=== PATIENT | female | born 1980 | race African-American/Black ===

== ENCOUNTER 2024-08-21 09:53 | Inpatient (IN) | payer BC, OTHER ==
[2024-08-20 23:30] VITALS: BP 182/99; PULSE 91; RESP 20; TEMP 98.6; O2SAT 99
[~2024-08-21] VITALS: Ht 177.8 cm; Wt 135.9 kg
[2024-08-21 10:14] VITALS: PULSE 98; RESP 16; O2SAT 98
--- NOTE | 2024-08-21 10:23 | ED.PDOC ---
History of Present Illness HPI Comments 44-year-old female with PMHx HTN, DM, HLD presents with a chief complaint of muscle pain and hypertension. Patient initially came into the ER to have her left foot evaluated for pain that has been present for 1 year, but worsening over the past 2 days. Patient was found to be hypertensive at 235/144. Patient mentions that she just moved to the area and has not established a PMD. No other symptoms or modifying factors present at this time. 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 Family History Family History: Reviewed,noncontributory to illness Social History Smoker: Non-Smoker Alcohol: Denies ETOH Use Drugs: Denies Drug Use Lives In: Home Constitutional: denies: chills, diaphoresis, fatigue, fever, malaise, sweats, weakness, others EENTM: denies: blurred vision, double vision, ear bleeding, ear discharge, ear drainage, ear pain, ear ringing, eye pain, eye redness, hearing loss, mouth pain, mouth swelling, nasal discharge, nose bleeding, nose congestion, nose pain, photophobia, tearing, throat pain, throat swelling, voice changes, others Respiratory: denies: cough, hemoptysis, orthopnea, SOB at rest, shortness of breath, SOB with excertion, stridor, wheezing, others Cardiovascular: reports: others (HYPERTENSION); denies: chest pain, dizzy spells, diaphoresis, Dyspnea on exertion, edema, irregular heart beat, left arm pain, lightheadedness, palpitations, PND, syncope Gastrointestinal: denies: abdomen distended, abdominal pain, blood streaked bowels, constipated, diarrhea, dysphagia, difficulty swallowing, hematemesis, melena, nausea, poor appetite, poor fluid intake, rectal bleeding, rectal pain, vomiting, others Genitourinary: denies: abnormal vagina bleeding, burning, dyspareunia, dysuria, flank pain, frequency, hematuria, incontinence, pain, , vagina discharge, urgency, others Neurological: denies: dizziness, fainting, headache, left sided numbness, left sided weakness, numbness, paresthesia, pre-existing deficit, right sided numbness, right sided weakness, seizure, speech problems, tingling, tremors, weakness, others Musculoskeletal: reports: muscle pain; denies: back pain, gout, joint pain, joint swelling, muscle stiffness, neck pain, others Integumetry: denies: bruises, change in color, change in hair/nails, dryness, laceration, lesions, lumps, rash, wounds, others Allergic/Immunocompromised: denies: Difficulty Healing, Frequent Infections, Hives, Itching, others Hematologic/Lymphatic: denies: anemia, blood clots, easy bleeding, easy bruising, swollen glands, others Endocrine: denies: excessive hunger, excessive sweating, excessive thirst, excessive urination, flushing, intolerance to cold, intolerance to heat, unexplained weight gain, unexplained weight loss, others Psychiatric: denies: anxiety, bipolar disorder, depression, hopeless, panic disorder, schizophrenia, sleepless, suicidal, others All Other Systems: Reviewed and Negative Physical Exam General Appearance: No Apparent Distress, Obese HEENT: Normal ENT Inspection, Pharynx Normal, TMs Normal Neck: Full Range of Motion, Non-Tender, Normal, Normal Inspection Respiratory: Chest Non-Tender, Lungs Clear, No Accessory Muscle Use, No Respiratory Distress, Normal Breath Sounds Cardiovascular: No Edema, No JVD, No Murmur, No Gallop, Normal Peripheral Pulses, Regular Rate/Rhythm Breast Exam: Deferred Gastrointestinal: No Organomegaly, Non Tender, No Pulsatile Mass, Normal Bowel Sounds, Soft Genitalia: Deferred Pelvic: Deferred Rectal: Deferred Extremities: No calf tenderness, Normal capillary refill, Normal inspection, Normal range of motion, No pedal edema, Tender (LEFT FOOT) Musculoskeletal : Apperance: Normal Neurologic: Alert, 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 Was a procedure done?: No Differential Dx Considerations may include: Hypertensive emergency, viral syndrome, acute cystitis, muscle strain, cellulitis, X-Ray, Labs, Meds, VS Vital Signs Date Time Temp Pulse Resp B/P (MAP) Pulse Ox O2 Delivery O2 Flow Rate FiO2 08/21/24 11:20 94 16 98 Room Air* 0 21 08/21/24 11:20 97.1 94 16 114/65 (81) 98 97.1 08/21/24 11:15 92 16 106/68 (81) 98 08/21/24 10:56 232/129 08/21/24 10:38 98.9 08/21/24 10:14 98.1 98 16 233/142 (172) 98 98.1 08/21/24 10:14 98 16 98 Room Air* 0 21 08/21/24 10:12 200/138 (158) 201/121 (147) 08/21/24 10:11 97.1 109 16 210/120 (150) 96 97.1 08/21/24 10:05 97.1 109 16 210/120 (150) 96 Lab Test 08/21/24 11:45 08/21/24 10:54 Range/Units Troponin I High Sensitivity 17 17 </=34 ng/L White Blood Count 5.5 4.4-10.8 10^3/uL Red Blood Count 5.47 H 4.0-5.20 10^6/uL Hemoglobin 14.6 12.2-16.2 g/dL Hematocrit 45.3 36.0-46.0 % Mean Corpuscular Volume 82.8 80.0-100.0 fL Mean Corpuscular Hemoglobin 26.7 L 28.0-32.0 pg Mean Corpuscular Hemoglobin Concent 32.3 32.0-36.0 g/dL Red Cell Distribution Width 15.2 H 11.8-14.3 % Platelet Count 289 140-450 10^3/uL Mean Platelet Volume 9.6 6.9-10.8 fL Neutrophils (%) (Auto) 55.6 37.0-80.0 % Lymphocytes (%) (Auto) 34.8 10.0-50.0 % Monocytes (%) (Auto) 7.2 0.0-12.0 % Eosinophils (%) (Auto) 1.3 0.0-7.0 % Basophils (%) (Auto) 1.1 0.0-2.0 % Neutrophils # (Auto) 3.1 1.6-8.6 10 ^3/uL Lymphocytes # (Auto) 1.9 0.4-5.4 10 ^3/uL Monocytes # (Auto) 0.4 0-1.3 10 ^3/uL Eosinophils # (Auto) 0.1 0-0.8 10 ^3/uL Basophils # (Auto) 0.1 0-0.2 10 ^3/uL Nucleated Red Blood Cells 0.3 % Sodium Level 137 136-145 mmol/L Potassium Level 4.2 3.5-5.1 mmol/L Chloride Level 102 98-107 mmol/L Carbon Dioxide Level 26 20-31 mmol/L Anion Gap 9 5-15 Blood Urea Nitrogen 8 L 9-23 mg/dL Creatinine 0.94 0.550-1.02 mg/dL Glomerular Filtration Rate Calc 76 >90 mL/min BUN/Creatinine Ratio 8.5 L 10.0-20.0 Serum Glucose 204 H 74-106 mg/dL Calcium Level 9.9 8.7-10.4 mg/dL Current Medications Medications (Trade) Dose Ordered Sig/Curt Route Start Time Stop Time Status Last Admin Acetaminophen (Tylenol Tablet) 650 mg ONCE ONCE PO 08/21/24 10:30 08/21/24 10:31 DC 08/21/24 10:38 Hydralazine HCl (Apresoline Injection) 20 mg ONCE ONCE IV 08/21/24 10:30 08/21/24 10:31 DC 08/21/24 10:56 Time of 1ST Reevaluation: 10:45 Reevaluation 1ST: Unchanged Patient Education/Counseling: Diagnosis, Treatment, Prognosis Family Education/Counseling: Diagnosis, Treatment, Prognosis Departure 1 Departure Time of Disposition: 13:37 (Patient presented with hypertension and symptoms concerning for hypertensive emergency. Patient is receiving iv blood pressure medications requiring intensive monitoring. Data: 1. I ordered and reviewed the result of at least 3 labs including a CBC, BMP, and Urinalysis. 2. I independently interpreted the following tests: CT Brain: Which appears benign. EKG which is Normal Sinus RhythmRisk:This patient has a high risk of morbidity due to further diagnostic testing or treatment and may suffer from an acute cardiac disorder. Workup reveals hypertensive emergency and patient should be admitted for further workup. and possible expert consultation. ) Impression: Primary Impression: Hypertensive emergency Additional Impression: Bilateral foot pain Disposition: ADMITTED INPATIENT Admit to: Med Surg Condition: Serious Critical Care Note Critical Care Time?: Yes Critical care comment: Hypertensive emergency Authorized and Performed by: Martha Monique MD Total critical care time: Approximately 38 minutes Due to a high probability of clinically significant, life threatening deterioration, the patient required my highest level of preparedness to intervene emergently and I personally spent this critical care time directly and personally managing the patient. This critical care time included obtaining a history; examining the patient; pulse oximetry; ordering and review of studies; arranging urgent treatment with development of a management plan; evaluation of patient's response to treatment; frequent reassessment; and, discussions with other providers. This critical care time was performed to assess and manage the high probability of imminent, life-threatening deterioration that could result in multi-organ failure. It was exclusive of separately billable procedures and treating other patients and teaching time. Please see my other sections and the rest of the note for further information on patient assessment and treatment. Stability Stability form required: No Heart Score Heart Score: Heart Score Response (Comments) Value History N/A 0 EKG N/A 0 Age N/A 0 Risk Factors N/A 0 Troponin N/A 0 Total 0 I personally scribed for MARTHA MONIQUE MD ([email or web address]) on 08/21/24 at 10:23. Electronically submitted by Jose Elizabeth ([email or web address]). MARTHA MONIQUE MD Aug 21, 2024 10:23
[2024-08-21] MEDS: ACETAMINOPHEN 325 MG TAB PO ONE (10:38)
[2024-08-21] MEDS: hydrALAZINE HCL 20 MG/ML VL IV ONE (10:56)
--- NOTE | 2024-08-21 11:10 | DVH ---
CLINICAL INDICATION: left foot pain TECHNIQUE: XY L FOOT 3 VIEW XRAY, XY R FOOT 3 VIEW XRAY Comparison: None FINDINGS/IMPRESSION: : There is no evidence of acute fracture or dislocation. Bilateral hallux valgus mild on the right and moderate on the left.
--- NOTE | 2024-08-21 11:11 | DVH ---
CHEST RADIOGRAPH Indication: htn Technique: Single frontal view of the chest was obtained Comparison: None FINDINGS: Lines and Tubes: None Lungs: No focal consolidation. Pleura: No effusion. No pneumothorax. Cardiomediastinal contours: Unremarkable Bones: No acute osseous abnormality. IMPRESSION: No acute cardiopulmonary disease.
[2024-08-21 11:20] VITALS: PULSE 94; RESP 16; O2SAT 98
[2024-08-21 11:31] LABS: Basophils # (auto) 0.1 10 ^3/uL (0-0.2); Basophils % (auto) 1.1 % (0.0-2.0); Eosinophils # (auto) 0.1 10 ^3/uL (0-0.8); Lymphocytes # (auto) 1.9 10 ^3/uL (0.4-5.4); Mean Corpuscular Hgb Conc. 32.3 g/dL (32.0-36.0); Neutrophils # (auto) 3.1 10 ^3/uL (1.6-8.6); White Blood Cell 5.5 10^3/uL (4.4-10.8)
[2024-08-21 11:34] LABS: Eosinophils % (auto) 1.3 % (0.0-7.0); Hematocrit 45.3 % (36.0-46.0); Hemoglobin 14.6 g/dL (12.2-16.2); Lymphocytes % (auto) 34.8 % (10.0-50.0); Mean Corpuscular Hemoglobin 26.7 pg (28.0-32.0); Mean Corpuscular Volume 82.8 fL (80.0-100.0); Monocytes # (auto) 0.4 10 ^3/uL (0-1.3); Monocytes % (auto) 7.2 % (0.0-12.0); Neutrophils % (auto) 55.6 % (37.0-80.0); Nucleated Red Blood Cells % 0.3 %; Platelet Count (auto) 289 10^3/uL (140-450); Red Blood Cells 5.47 10^6/uL (4.0-5.20); Red Cell Distribution Width 15.2 % (11.8-14.3)
[2024-08-21 11:38] LABS: Chloride 102 mmol/L (98-107); Potassium 4.2 mmol/L (3.5-5.1); Sodium 137 mmol/L (136-145)
[2024-08-21 11:39] LABS: Anion Gap 9 (5-15); Calcium 9.9 mg/dL (8.7-10.4); Carbon Dioxide 26 mmol/L (20-31)
[2024-08-21 11:44] LABS: BUN/Creatinine Ratio 8.5 (10.0-20.0)
[2024-08-21 11:48] LABS: Blood Urea Nitrogen 8 mg/dL (9-23); Glucose 204 mg/dL (74-106)
[2024-08-21] MEDS: KETOROLAC TROMETH 30 MG/ML 1ML VIAL IV ONE (13:54)
[2024-08-21] MEDS ORDERED: ONDANSETRON HCL 4 MG/2 ML VIAL IV PRN ×2 (14:00→23:15)
[2024-08-21] MEDS ORDERED: ACETAMINOPHEN 325 MG TAB PO PRN (14:00)
[2024-08-21] MEDS ORDERED: hydrALAZINE HCL 20 MG/ML VL IV PRN (14:00)
[2024-08-21] MEDS ORDERED: DOCUSATE SOD 100 MG CAP PO PRN ×2 (14:00→23:15)
[2024-08-21] MEDS ORDERED: HYDROcodone-ACET 5/325MG TAB PO PRN (14:00)
[2024-08-21] MEDS ORDERED: DEXTROSE (50%) 50ML SYRG IV PRN ×2 (14:00→23:00)
[2024-08-21] MEDS: SODIUM CHLORIDE 0.9% 1,000 ML IV SCH ×2 (14:27→23:15)
[2024-08-21 14:28] LABS: Urine Bacteria None Seen /hpf (None Seen)
[2024-08-21 14:55] LABS: Urine Blood TRACE /uL (Negative); Urine Clarity Clear (Clear); Urine Color Light-Yellow (Yellow); Urine Hyaline Cast FEW /lpf (0 - 2); Urine Protein, UAD 1+ (Negative); Urine Specific Gravity 1.012 (1.001-1.035); Urine Squamous Epithelial Cell FEW /hpf (<5); Urine Urobilinogen Normal (Negative); Urine WBC 1 /HPF (0-5)
--- NOTE | 2024-08-21 15:55 | DVHHP2 ---
History of Present Illness Reason for Visit: Hypertensive urgency History of Present Illness The patient is a 44-year-old female with past medical history of hypertension, DM, and hyperlipidemia who presented to [facility] ED with complaint of muscle pain and high blood pressure. Patient reports she has been exper iencing chronic bilateral foot pain left worse than right for the past 1 year, worsening over the past 2 days that prompted this visit. Patient was seen and evaluated in in the ED hypertensive blood pressure 233/142, heart rate 109, temperature 97.1 F, O2 saturation 98% on room air, WBC 5.5, platelets 289, sodium 137, potassium 4.2, BUN eight, creatinine 0.94, GFR 76, glucose 204, troponin 17. Bilateral lower extremity x-ray showed no evidence of acute fracture or dislocation. Patient was given IV morphine sulfate 2 mg x1, hydralazine 20 mg IV x1, please see medication orders section in the computer. On my assessment, blood pressure trending down to 114/65, heart rate 94, patient denied chest pain, no headache, no dizziness, no loss of consciousness, no mayur sea, no vomiting, no fever, no chills. Patient was admitted for further evaluation and medical management. Past Medical History DM, High Lipids, HTN Past Surgical History Denies all surgeries Family History Reviewed, noncontributory to the management of this case. Past Social History The patient lives at home, denies smoking, alcohol or illicit drugs abuse. Review of Systems Constitutional: No: Fever, Chills, Sweats, Weakness, Malaise, Other Eyes: No: Pain, Vision change, Conjunctivae inflammation, Eyelid inflammation, Other, Redness ENT: No: Ear pain, Ear discharge, Nose pain, Nose discharge, Nose congestion, Mouth pain, Mouth swelling, Throat pain, Throat swelling, Other Respiratory: No: Cough, Dry, Shortness of breath, SOB with excertion, Wheezing, Hemoptysis, Pleuritic Pain, Sputum, Wheezing, Other Cardiovascular: Other (Hypertension); No: Chest Pain, Palpitations, Orthopnea, Paroxysmal Noc. Dyspnea, Edema, Lt Headedness Gastrointestinal: No: Nausea, Vomiting, Abdominal Pain, Diarrhea, Constipation, Melena, Hematochezia, Other Genitourinary: No Dysuria, No Frequency, No Incontinence, No Hematuria, No Retention, No Other Musculoskeletal: other (Muscle pain); No: neck pain, shoulder pain, arm pain, back pain, hand pain, leg pain, foot pain Skin: No: Rash, Lesions, Jaundice, Bruising, Other Neurological: No: Weakness, Numbness, Incoordination, Change in speech, Confusion, Seizures, Other Allergies: Coded Allergies: NO KNOWN ALLERGIES (Unverified , 08/21/24) Medications Current Medications Medications Dose Ordered Sig/Curt Route Start Time Stop Time Status Last Admin Dose Admin Amlodipine Besylate 5 mg DAILY PO 08/22/24 10:00 Metoprolol Tartrate 25 mg BID PO 08/21/24 22:00 Hydralazine HCl 10 mg Q6HP PRN IV 08/21/24 14:00 Atorvastatin Calcium 20 mg HS PO 08/21/24 22:00 Diagnostic Test (Pha) 1 strip ACHS 08/21/24 17:00 Insulin Human Regular HS SC 08/21/24 22:00 Insulin Human Regular AC SC 08/21/24 17:00 Dextrose 50 ml UD PRN IV 08/21/24 14:00 Sodium Chloride 1,000 ml @ 60 mls/hr [id number] IV 08/21/24 14:00 08/21/24 14:27 60 MLS/HR Acetaminophen/ Hydrocodone Bitart 1 tab Q4HP PRN PO 08/21/24 14:00 Ondansetron HCl 4 mg Q4HP PRN IV 08/21/24 14:00 Docusate Sodium 100 mg BIDPRN PRN PO 08/21/24 14:00 Acetaminophen 650 mg Q6HP PRN PO 08/21/24 14:00 Aspirin 81 mg DAILY PO 08/22/24 10:00 Exam Vital Signs Vital Signs Date Time Temp Pulse Resp B/P (MAP) Pulse Ox O2 Delivery O2 Flow Rate FiO2 08/21/24 14:00 99 18 141/120 (127) 100 08/21/24 11:20 Room Air* 0 21 08/21/24 11:20 97.1 97.1 General Appearance: Alert, Oriented X3, Cooperative, No acute distress HEENT: Atraumatic, PERRLA, EOMI, Mucous membr. moist/pink Respiratory: Clear to auscultation, Normal air movement Cardiovascular: Regular rate, Normal S1, Normal S2, No murmurs Abdominal: Normal bowel sounds, Soft, No tenderness, No hepatospenomegaly, No masses Extremities: No clubbing, No cyanosis, No edema, Normal pulses, Other (Bilateral foot tenderness) Skin: No rashes, No breakdown, No significant lesion Neuro: Normal gait, Normal speech, Strength at 5/5 X4 ext, Normal tone, Sensation intact, Cranial nerves 3-12 NL, Reflexes 2+ Psych/Mental Status: Mental status NL, Mood NL Labs/Xrays Labs Test 08/21/24 14:33 08/21/24 10:54 08/21/24 10:36 Range/Units Troponin I High Sensitivity 16 </=34 ng/L White Blood Count 5.5 4.4-10.8 10^3/uL Red Blood Count 5.47 H 4.0-5.20 10^6/uL Hemoglobin 14.6 12.2-16.2 g/dL Hematocrit 45.3 36.0-46.0 % Mean Corpuscular Volume 82.8 80.0-100.0 fL Mean Corpuscular Hemoglobin 26.7 L 28.0-32.0 pg Mean Corpuscular Hemoglobin Concent 32.3 32.0-36.0 g/dL Red Cell Distribution Width 15.2 H 11.8-14.3 % Platelet Count 289 140-450 10^3/uL Mean Platelet Volume 9.6 6.9-10.8 fL Neutrophils (%) (Auto) 55.6 37.0-80.0 % Lymphocytes (%) (Auto) 34.8 10.0-50.0 % Monocytes (%) (Auto) 7.2 0.0-12.0 % Eosinophils (%) (Auto) 1.3 0.0-7.0 % Basophils (%) (Auto) 1.1 0.0-2.0 % Neutrophils # (Auto) 3.1 1.6-8.6 10 ^3/uL Lymphocytes # (Auto) 1.9 0.4-5.4 10 ^3/uL Monocytes # (Auto) 0.4 0-1.3 10 ^3/uL Eosinophils # (Auto) 0.1 0-0.8 10 ^3/uL Basophils # (Auto) 0.1 0-0.2 10 ^3/uL Nucleated Red Blood Cells 0.3 % Sodium Level 137 136-145 mmol/L Potassium Level 4.2 3.5-5.1 mmol/L Chloride Level 102 98-107 mmol/L Carbon Dioxide Level 26 20-31 mmol/L Anion Gap 9 5-15 Blood Urea Nitrogen 8 L 9-23 mg/dL Creatinine 0.94 0.550-1.02 mg/dL Glomerular Filtration Rate Calc 76 >90 mL/min BUN/Creatinine Ratio 8.5 L 10.0-20.0 Serum Glucose 204 H 74-106 mg/dL Calcium Level 9.9 8.7-10.4 mg/dL Urine Color Light-yellow Yellow Urine Clarity Clear Clear Urine pH 7.0 5.0-9.0 Urine Specific Kidder 1.012 1.001-1.035 Urine Protein 1+ H Negative Urine Ketones Negative Negative Urine Blood Trace H Negative /uL Urine Nitrite Negative Negative Urine Bilirubin Negative Negative Urine Urobilinogen Normal Negative mg/dL Urine Leukocyte Esterase Negative Negative /uL Urine RBC 4 0 - 4 /hpf Urine Microscopic WBC 1 0-5 /HPF Urine Squamous Epithelial Cells Few <5 /hpf Urine Bacteria None seen None Seen /hpf Urine Hyaline Casts Few 0 - 2 /lpf Urine Glucose Normal Normal mg/dL PATIENT: NICHOLAS OSORIO ACCT: [id number] UNIT: [id number] : 1980 LOC: ER ROOM / BED: / AGE / SEX: 44 / F ADM STATUS: REG ER SERVICE 1029 ORDERING PHYSICIAN: MARTHA ZARAGOZA MD PROCEDURE(s): CXRP - CHEST PORTABLE REASON: htn ORDER NUMBER(s): [id number], ACCESSION NUMBER(s): [id number] CHEST RADIOGRAPH Indication: htn Technique: Single frontal view of the chest was obtained Comparison: None FINDINGS: Lines and Tubes: None Lungs: No focal consolidation. Pleura: No effusion. No pneumothorax. Cardiomediastinal contours: Unremarkable Bones: No acute osseous abnormality. IMPRESSION: No acute cardiopulmonary disease. ORDERING PHYSICIAN: MARTHA ZARAGOZA MD PROCEDURE(s): LFOOT - L FOOT 3 VIEW XRAY REASON: left foot pain ORDER NUMBER(s): [id number], ACCESSION NUMBER(s): [id number] CLINICAL INDICATION: left foot pain TECHNIQUE: XY L FOOT 3 VIEW XRAY, XY R FOOT 3 VIEW XRAY Comparison: None FINDINGS/IMPRESSION: There is no evidence of acute fracture or dislocation. Bilateral hallux valgus mild on the right and moderate on the left. ORDERING PHYSICIAN: MARTHA ZARAGOZA MD PROCEDURE(s): RFOOT - R FOOT 3 VIEW XRAY REASON: right foot pain ORDER NUMBER(s): [id number], ACCESSION NUMBER(s): [id number] CLINICAL INDICATION: Right foot pain TECHNIQUE: XY L FOOT 3 VIEW XRAY, XY R FOOT 3 VIEW XRAY Comparison: None FINDINGS/IMPRESSION: There is no evidence of acute fracture or dislocation. Bilateral hallux valgus mild on the right and moderate on the left. Assessment/Plan Assessment/Plan Hypertensive emergency Bilateral foot pain Diabetes mellitus with hyperglycemia Plan 1. Admit to telemetry unit 2. Breathing treatment 3. Pain control management 4. Management of fluids and electrolytes 5. Consultation for hospitalist 6. Diagnostic tests bilateral foot x-ray 7. DVT prophylaxis on aspirin 8. Repeat labs CBC, CMP in a.m. 9. Continue with current medical management 10. Treatment plan discussed with patient and RN. Patient verbalized understanding. Plan discussed with: Patient, Other (RN) My Orders Orders - WAYNE KYLE DNP Procedure Category Date Status Time Consistent DIET 08/21/24 Transmitted Carb(Ccho)Diabetes Dinner Amlodipine Tablet PHA 08/22/24 In Process (Norvasc Tablet) 10:00 Metoprolol Tartrate PHA 08/21/24 In Process Tablet (Lopressor Ta 22:00 Hydralazine Injection PHA 08/21/24 In Process (Apresoline Inject 14:00 Atorvastatin (Lipitor) PHA 08/21/24 In Process 22:00 Glucose Blood PHA 08/21/24 In Process (Accu-Chek Comfort 17:00 Insulin R (Human) PHA 08/21/24 In Process (Insulin R) 22:00 Insulin R (Human) PHA 08/21/24 In Process (Insulin R) 17:00 Dextrose 50% Syringe PHA 08/21/24 In Process 14:00 Allergies YOU 08/21/24 In Process 13:57 Code Status CODE 08/21/24 Transmitted 13:57 Sodium Chloride 0.9% PHA 08/21/24 In Process 14:00 Oxygen Per Hour RT 08/21/24 Transmitted 13:57 Hydrocodone-Acet PHA 08/21/24 In Process 5/325mg Tab ([place] 14:00 Ondansetron Hcl PHA 08/21/24 In Process (Zofran) 14:00 Docusate Sodium PHA 08/21/24 In Process Capsule (Colace 14:00 Complete Blood Count LAB 08/22/24 Verified 04:00 Comprehensive LAB 08/22/24 Verified Metabolic Panel 04:00 Condition: Serious YOU 08/21/24 In Process 13:57 Acetaminophen Tablet PHA 08/21/24 In Process (Tylenol Tablet) 14:00 Bedrest With Bathroom YOU 08/21/24 In Process Privileg 13:57 Sequential YOU 08/21/24 In Process Compression Device Aspirin Tablet PHA 08/22/24 In Process 10:00 Problem List: (1) Hypertensive emergency (2) Bilateral foot pain (3) Diabetes mellitus with hyperglycemia Date of Service: Aug 21, 2024 Billing Provider: WAYNE KYLE DNP Common Visit Codes: [id number] INP/OBS CARE (HIGH) WAYNE KYLE DNP Aug 21, 2024 15:55
[2024-08-21] MEDS ORDERED: NITROGLYCERIN 0.4 MG SL TAB SL PRN ×3 (16:00→23:15)
[2024-08-21] MEDS ORDERED: MORPHINE SULFATE INJ 2 MG/ml SYRG IV PRN ×3 (16:00→23:15)
[2024-08-21] MEDS: ACCU-CHEK COMFORT CURVE STRIP VI SCH (17:00)
[2024-08-21] MEDS: InsuLIN REG 1unit/0.01ml Soln (100units/ml) SC SCH ×2 (17:00→22:00)
[2024-08-21 19:40] VITALS: PULSE 99; RESP 20; O2SAT 99
[2024-08-21 21:00] VITALS: BP 182/99; PULSE 91; RESP 20; TEMP 98.6; O2SAT 99
[2024-08-21] MEDS ORDERED: METOPROLOL TARTRATE 25 MG TAB PO SCH (22:00)
[2024-08-21] MEDS ORDERED: ATORVASTATIN 20 MG TAB PO SCH (22:00)
[2024-08-21 22:30] VITALS: BP 182/99; PULSE 91; RESP 20; TEMP 98.6; O2SAT 99
[2024-08-21] MEDS: HYDROcodone-ACET 5/325MG TAB PO PRN (23:21)
[2024-08-21] MEDS: hydrALAZINE HCL 20 MG/ML VL IV PRN (23:22)
[2024-08-22] VITALS (8 sets, daily range): BP systolic 142–180; BP diastolic 64–99; PULSE 89–100; RESP 17–20; TEMP 98.1–98.8; O2SAT 94–99
[2024-08-22] MEDS ORDERED: HYDR25TA4 PO (00:25)
[2024-08-22] MEDS ORDERED: ATOR20TA50 PO (00:25)
[2024-08-22] MEDS: InsuLIN REG 1unit/0.01ml Soln (100units/ml) SC SCH ×2 (06:06→21:36)
[2024-08-22] MEDS: ACCU-CHEK COMFORT CURVE STRIP VI SCH (06:06)
[2024-08-22] MEDS ORDERED: amLODIPine BESYLATE 5 MG TAB PO SCH (10:00)
[2024-08-22] MEDS ORDERED: ASPirin 81 mg TAB PO SCH (10:00)
[2024-08-22] MEDS: ASPirin 81 mg TAB PO SCH (10:30)
[2024-08-22] MEDS: amLODIPine BESYLATE 5 MG TAB PO SCH (10:31)
[2024-08-22] MEDS: METOPROLOL TARTRATE 25 MG TAB PO SCH (10:31)
--- NOTE | 2024-08-22 14:26 | DVHPN2 ---
Subjective 44-year-old female with a history of hypertension, prediabetic, morbid obesity, dyslipidemia came with bilateral feet pain and hypertension She has pain in the medial aspect of the 1st toe of both feet Her blood pressure is high Otherwise she is asymptomatic Changes from previous H/P or p: Changes Eyes: No Pain, No Vision change, No Conjunctivae inflammation, No Eyelid inflammation, No Other, No Redness ENT: No Ear pain, No Ear discharge, No Nose pain, No Nose discharge, No Nose congestion, No Mouth pain, No Mouth swelling, No Throat pain, No Throat swelling, No Other Cardiovascular: No Chest Pain, No Palpitations, No Orthopnea, No Paroxysmal Noc. Dyspnea, No Edema, No Lt Headedness; Other (Hypertension) Respiratory: No Cough, No Dry, No Shortness of breath, No SOB with excertion, No Wheezing, No Hemoptysis, No Pleuritic Pain, No Sputum, No Other Gastrointestinal: No Nausea, No Vomiting, No Abdominal Pain, No Diarrhea, No Constipation, No Melena, No Hematochezia, No Other Genitourinary: No Dysuria, No Frequency, No Incontinence, No Hematuria, No Retention, No Other Musculoskeletal: other (Muscle pain); No neck pain, No shoulder pain, No arm pain, No back pain, No hand pain, No leg pain, No foot pain Skin: No Rash, No Lesions, No Jaundice, No Bruising, No Other Objective Vitals Vital Signs Date Time Temp Pulse Resp B/P (MAP) Pulse Ox O2 Delivery O2 Flow Rate FiO2 08/22/24 10:31 92 170/87 08/22/24 09:35 98.2 18 97 98.2 08/22/24 08:00 Room Air* 0 21 Intake/Output Intake and Output 08/22/24 07:00 Intake Total 320 ml Balance 320 ml Intake Oral 200 ml IV Total 120 ml # Voids 2 General Appearance: Alert, Oriented X3, Cooperative, No acute distress Lungs: Clear to auscultation, Normal air movement Cardiovascular: Regular rate, Normal S1, Normal S2, No murmurs Abdomen: Normal bowel sounds, Soft, No tenderness Extremities: No edema Medications Current Medications Medications Dose Ordered Sig/Curt Route Start Time Stop Time Status Last Admin Dose Admin Amlodipine Besylate 5 mg DAILY PO 08/22/24 10:00 08/22/24 10:31 5 MG Metoprolol Tartrate 25 mg BID PO 08/22/24 10:00 08/22/24 10:31 25 MG Hydralazine HCl 10 mg Q6HP PRN IV 08/21/24 23:00 08/22/24 05:44 10 MG Atorvastatin Calcium 20 mg HS PO 08/22/24 22:00 Diagnostic Test (Pha) 1 strip ACHS 08/22/24 07:00 08/22/24 12:51 1 STRIP Insulin Human Regular HS SC 08/22/24 22:00 Insulin Human Regular AC SC 08/22/24 07:00 Dextrose 50 ml UD PRN IV 08/21/24 23:00 Sodium Chloride 1,000 ml @ 60 mls/hr [id number] IV 08/21/24 23:15 Acetaminophen/ Hydrocodone Bitart 1 tab Q4HP PRN PO 08/21/24 23:15 08/21/24 23:21 1 TAB Ondansetron HCl 4 mg Q4HP PRN IV 08/21/24 23:15 Docusate Sodium 100 mg BIDPRN PRN PO 08/21/24 23:15 Acetaminophen 650 mg Q6HP PRN PO 08/21/24 23:15 Aspirin 81 mg DAILY PO 08/22/24 10:00 08/22/24 10:30 81 MG Morphine Sulfate 2 mg Q30M PRN IV 08/21/24 23:15 Nitroglycerin 0.4 mg Q5MINP PRN SL 08/21/24 23:15 Laboratory Results Laboratory Tests 08/21/24 10:54 Urinalysis Test 08/21/24 10:36 Urine Color Light-yellow (Yellow) Urine Clarity Clear (Clear) Urine pH 7.0 (5.0-9.0) Urine Specific [place] 1.012 (1.001-1.035) Urine Protein 1+ (Negative) H Urine Ketones Negative (Negative) Urine Blood Trace /uL (Negative) H Urine Nitrite Negative (Negative) Urine Bilirubin Negative (Negative) Urine Urobilinogen Normal mg/dL (Negative) Urine Leukocyte Esterase Negative /uL (Negative) Urine RBC 4 /hpf (0 - 4) Urine Microscopic WBC 1 /HPF (0-5) Urine Squamous Epithelial Cells Few /hpf (<5) Urine Bacteria None seen /hpf (None Seen) Urine Hyaline Casts Few /lpf (0 - 2) Urine Glucose Normal mg/dL (Normal) Assessment/Plan Assessment/Plan Uncontrolled hypertension Bilateral feet bunions 1st metatarsal Morbid obesity Prediabetic Mixed hyperlipidemia Plan Restart her home medications Increase lisinopril to 40 mg daily Increase amlodipine to 10 mg daily Continue hydrochlorothiazide 25 mg daily Outpatient referral to Podiatry Monitor the patient in the hospital 1 more day Full code Discussed with the patient and with her brother over the phone Advance directives and care plan was discussed for 15 minute Plan discussed with: Patient, Other Date of Service: Aug 22, 2024 Billing Provider: ERROL HOPSON MD Common Visit Codes: [id number] INP/OBS CARE(HIGH) Secondary Visit Codes: [id number] CARE PLAN 30 MINUTES ERROL HOPSON MD Aug 22, 2024 14:26
[2024-08-22] MEDS: ACETAMINOPHEN 325 MG TAB PO PRN (16:05)
[2024-08-22] MEDS: LISINOPRIL 20 MG TAB PO ONE (16:05)
[2024-08-22] MEDS: amLODIPine BESYLATE 5 MG TAB PO ONE (16:06)
[2024-08-22] MEDS: hydroCHLOROthiazide 25 MG TAB PO ONE (16:06)
[2024-08-22] MEDS: ATORVASTATIN 20 MG TAB PO SCH (21:33)
[2024-08-23 01:00] VITALS: BP 170/84; PULSE 96; RESP 18; TEMP 99; O2SAT 95
[2024-08-23 05:00] VITALS: BP 148/86; PULSE 100; RESP 18; TEMP 98.4; O2SAT 93
[2024-08-23 08:00] VITALS: PULSE 82; RESP 20; O2SAT 94
[2024-08-23 08:02] LABS: Triglycerides 110 mg/dL (< 150)
[2024-08-23 08:06] LABS: Cholesterol 215 mg/dL (< 200); HDL Cholesterol 40 mg/dL (40-59); LDL Cholesterol 169 mg/dL (< 100)
[2024-08-23 09:00] VITALS: BP 146/86; PULSE 100; RESP 20; TEMP 98; O2SAT 97
[2024-08-23] MEDS ORDERED: AMLO1TAB23 PO (09:43)
[2024-08-23] MEDS ORDERED: HYDR25TA4 PO (09:43)
[2024-08-23] MEDS ORDERED: LISI40TA16 PO (09:43)
--- NOTE | 2024-08-23 09:46 | DVHDS2 ---
Discharge Summary Date of Admission Aug 21, 2024 at 15:54 Date of Discharge: Aug 23, 2024 Labs/Diagnostic Data: Laboratory Results Test 08/23/24 06:25 08/22/24 17:24 08/21/24 14:33 08/21/24 10:54 Hemoglobin A1c 7.2 % A1C (<5.7) Triglycerides Level 110 mg/dL (< 150) Cholesterol Level 215 mg/dL (< 200) LDL Cholesterol 169 mg/dL (< 100) HDL Cholesterol 40 mg/dL (40-59) POC Glucose 141 mg/dl (70-106) Troponin I High Sensitivity 16 ng/L (</=34) White Blood Count 5.5 10^3/uL (4.4-10.8) Red Blood Count 5.47 10^6/uL (4.0-5.20) Hemoglobin 14.6 g/dL (12.2-16.2) Hematocrit 45.3 % (36.0-46.0) Mean Corpuscular Volume 82.8 fL (80.0-100.0) Mean Corpuscular Hemoglobin 26.7 pg (28.0-32.0) Mean Corpuscular Hemoglobin Concent 32.3 g/dL (32.0-36.0) Red Cell Distribution Width 15.2 % (11.8-14.3) Platelet Count 289 10^3/uL (140-450) Mean Platelet Volume 9.6 fL (6.9-10.8) Neutrophils (%) (Auto) 55.6 % (37.0-80.0) Lymphocytes (%) (Auto) 34.8 % (10.0-50.0) Monocytes (%) (Auto) 7.2 % (0.0-12.0) Eosinophils (%) (Auto) 1.3 % (0.0-7.0) Basophils (%) (Auto) 1.1 % (0.0-2.0) Neutrophils # (Auto) 3.1 10 ^3/uL (1.6-8.6) Lymphocytes # (Auto) 1.9 10 ^3/uL (0.4-5.4) Monocytes # (Auto) 0.4 10 ^3/uL (0-1.3) Eosinophils # (Auto) 0.1 10 ^3/uL (0-0.8) Basophils # (Auto) 0.1 10 ^3/uL (0-0.2) Nucleated Red Blood Cells 0.3 % Sodium Level 137 mmol/L (136-145) Potassium Level 4.2 mmol/L (3.5-5.1) Chloride Level 102 mmol/L (98-107) Carbon Dioxide Level 26 mmol/L (20-31) Anion Gap 9 (5-15) Blood Urea Nitrogen 8 mg/dL (9-23) Creatinine 0.94 mg/dL (0.550-1.02) Glomerular Filtration Rate Calc 76 mL/min (>90) BUN/Creatinine Ratio 8.5 (10.0-20.0) Serum Glucose 204 mg/dL (74-106) Calcium Level 9.9 mg/dL (8.7-10.4) Test 08/21/24 10:36 Urine Color Light-yellow (Yellow) Urine Clarity Clear (Clear) Urine pH 7.0 (5.0-9.0) Urine Specific [place] 1.012 (1.001-1.035) Urine Protein 1+ (Negative) Urine Ketones Negative (Negative) Urine Blood Trace /uL (Negative) Urine Nitrite Negative (Negative) Urine Bilirubin Negative (Negative) Urine Urobilinogen Normal mg/dL (Negative) Urine Leukocyte Esterase Negative /uL (Negative) Urine RBC 4 /hpf (0 - 4) Urine Microscopic WBC 1 /HPF (0-5) Urine Squamous Epithelial Cells Few /hpf (<5) Urine Bacteria None seen /hpf (None Seen) Urine Hyaline Casts Few /lpf (0 - 2) Urine Glucose Normal mg/dL (Normal) Other Laboratory Tests 08/21/24 10:54 Brief Hx & Hospital Course: Diagnoses: Uncontrolled hypertension Hypertensive urgency Bilateral feet bunions 1st metatarsal Morbid obesity Prediabetic Mixed hyperlipidemia 44-year-old female was admitted for high blood pressure. She was not taking her medications like he should, she just moved to the area, she needs refills She is complaining of bilateral feet pain due to find use Her medications were maximized including lisinopril and amlodipine and hydrochlorothiazide and her blood pressure is better now and therefore she can be discharged home Follow up with her primary care physician as soon as possible Take lisinopril 40 mg daily and amlodipine 10 mg daily and hydrochlorothiazide 25 mg daily Continue the other home medications Follow up with her primary care physician for referral to Podiatry as an outpatient Condition at Discharge: Stable Final Diagnosis/Problems List Hypertensive urgency Uncontrolled hypertension Morbid obesity Mixed hyperlipidemia Prediabetic Discharge Disposition: Home SNF Discharge Will this Physician continue t: No Discharge Instruct/Medications Diet: Consistent carbohydrate, Cardiac 2g Na,low cholest Activity: No Restrictions, As Tolerated Follow Up/Referral: PCP as soon as possible Medications: Amlodipine 10 mg daily Lisinopril 40 mg daily Hydrochlorothiazide 25 mg daily Resume other home medications Discharge Statement: "Patient was advised to return to the ER or call 911 if any headaches, dizziness, shortness of breath, chest pain, abdominal pain, bleeding, fevers, or worsening of medical condition. Patient was counseled about treatment plan, medications, possible side effects, patientverbalized understanding. All questions were answered to the best of my ability. This discharge took greater then 30 minutes in planning, reviewing documentation, counseling the patient, and discussing with other team members." ASSESSMENT ASSESSMENT Assessment Hypertensive urgency Uncontrolled hypertension Morbid obesity Mixed hyperlipidemia Prediabetic Date of Service: Aug 23, 2024 Billing Provider: ERROL HOPSON MD Common Visit Codes: [id number]/OBS DISCH DAY >30min ERROL HOPSON MD Aug 23, 2024 09:46
[2024-08-23] MEDS: LISINOPRIL 20 MG TAB PO SCH (10:40)
[2024-08-23] MEDS: amLODIPine BESYLATE 5 MG TAB PO SCH (10:40)
[2024-08-23] MEDS: hydroCHLOROthiazide 25 MG TAB PO SCH (10:41)
[2024-08-23 13:32] VITALS: BP 150/88; PULSE 91; RESP 20; TEMP 98.1; O2SAT 95
[2024-08-23 14:46] VITALS: BP 144/77; PULSE 92; TEMP 36.7; O2SAT 97
--- NOTE | 2024-08-24 14:20 | DVHSR ---
APPROVED REPORT EXAM: Two-dimensional and M-mode echocardiogram with Doppler and color Doppler. Blood Pressure: 182/83 mmHg INDICATION hypotension RISK FACTORS Obesity: Height: 5'10, Weight: 299 DIMENSIONS LVDd4.6 (3.8-5.7cm)LA (2D)3.5 (1.9-4.0cm)Aortic Root3.5 (2.0-3.7cm) LVDs3.4 (2.5-4.0cm)LA (MM) (1.9-4.0cm)Aortic Cusp Exc2.0 (1.5-2.0cm) EF (%) 55.0 (55-70%)Rt. Atrium2.9 (1.9-4.0cm)Asc. Aorta3.2 cm IVSd1.2 (0.7-1.1cm)RV (D)3.4 (1.8-2.4cm) PWd1.3 (0.7-1.1cm) Mitral Valve MitralMitral Stenosis E wave0.93m/sMV Mean GR.mmHg A wave1.08m/sMV Peak GR.mmHg E/A ratio0.92D MVAcm2 DECEL [id number] 1/2 [place] Aortic Valve Aortic ValveAortic Stenosis V10.98m/David Mean GR.3mmHg V21.23m/David Peak GR.6mmHg LVOT Diameter2.1 (1.8-2.4cm)Doppler AVA2.76cm2 Pulmonic Valve V21.05m/s Other Information Quality : Technically LimitedRhythm : Technically limited study due to body habitus. Conclusion Sinus rhythm. Concentric LVH with left atrial enlargement. Valves are normal. EF of 50% with normal RV function. Dopplers unremarkable. No pericardial effusion masses or vegetations.
== END 2024-08-23 15:58 | disposition home or self-care (01) | DRG 565 ==
LOC: ER 09:53 → OVERFLOW 15:54 → ER 15:55 → EAST 21:22 → TELE-EAST 08-22 03:36
PROVIDERS: ADMIT Internal Medicine Geriatric Medicine; ATTEND Internal Medicine Geriatric Medicine
DX: M21.612 Bunion of left foot (principal); I16.1 Hypertensive emergency; Z68.41 Body mass index [BMI] 40.0-44.9, adult; M21.611 Bunion of right foot; E11.65 Type 2 diabetes mellitus with hyperglycemia; E78.2 Mixed hyperlipidemia; I10 Essential (primary) hypertension; E66.01 Morbid (severe) obesity due to excess calories; Z79.899 Other long term (current) drug therapy; Z79.4 Long term (current) use of insulin; Z79.1 Long term (current) use of non-steroidal anti-inflammatories (NSAID); Z79.82 Long term (current) use of aspirin
CPT/HCPCS: 36415; 71045; 73630; 80048; 80061; 81001; 82962; 83036; 84484; 85025; 93306; 96374; 96375; 99291; G0378; J1815; J1885